=== PATIENT | female | born 1945 | race Caucasian/White ===

== ENCOUNTER 2020-08-30 09:53 | Inpatient (IN) ==
[2020-08-30 10:32] LABS: Basophils % 0.3 %; Eosinophils # 0.1 K/mcL (0.0-0.6); Eosinophils % 0.8 %; Hematocrit 38.5 % (35.3-44.9); Hemoglobin 12.1 g/dL (11.5-15.4); Immature Granulocytes % 0.3 % (0-4); Lymphocytes # 0.9 K/mcL (0.6-4.6); Lymphocytes % 11.8 %; Mean Corpuscular HGB Conc 31.4 g/dL (31.6-35.5); Mean Corpuscular Hemoglobin 28.4 pg (28.0-33.3); Mean Corpuscular Volume 90.4 fL (83.0-100.0); Mean Platelet Volume 10.6 fL (9.4-12.4); Monocytes # 0.8 K/mcL (0.0-1.3); Monocytes % 10.5 %; Neutrophils # 5.8 K/mcL (1.6-8.9); Platelet Count 278 K/mcL (140-400); Red Blood Count 4.26 M/mcL (3.82-4.97); Red Cell Distribution Width 16.6 % (11.5-14.5); Segmented Neutrophils % 76.3 %; White Blood Count 7.6 K/mcL (4.3-11.1)
[2020-08-30 10:42] LABS: INR 1.6; Prothrombin Time 17.7 Seconds (9.4-12.1)
[2020-08-30 10:45] LABS: Activated Partial Thrombo Time 34.7 Seconds (26.0-36.0)
[2020-08-30 10:53] LABS: BUN/Creatinine Ratio 20 (6-26); Blood Urea Nitrogen 20 mg/dL (8-23); Calcium 9.1 mg/dL (8.6-10.3); Carbon Dioxide 24 mEq/L (23-29); Chloride 109 mEq/L (98-107); Glucose 108 mg/dL (70-105); Magnesium 1.7 mg/dL (1.6-2.6); Osmolality,Calculated 295 (280-300); Potassium 4.2 mEq/L (3.5-5.1); Sodium 141 mEq/L (136-145); Troponin I < 0.03 ng/mL (< 0.04); eGFR For African Americans > 60 (> 60); eGFR For Non-African Americans 53 (> 60)
[2020-08-30] MEDS: DilTIAZem 50 MG/50 ML IV.SOLN IVC SCH ×2 (10:56→20:57)
[2020-08-30 11:07] LABS: Thyroid Stimulating Hormone 2.548 mcIU/mL (0.340-5.600)
[2020-08-30] MEDS ORDERED: DilTIAZem CD (24hr) 120 MG CAP.ER.24H PO SCH (11:15)
[2020-08-30] MEDS ORDERED: Ondansetron 4 MG/2 ML VIAL IVP PRN (12:15)
[2020-08-30] MEDS ORDERED: Acetaminophen 325 MG TABLET PO PRN (12:15)
[2020-08-30] MEDS ORDERED: DilTIAZem CD (24hr) 120 MG CAP.ER.24H PO ONE (16:15)
[2020-08-30] MEDS: Apixaban 5 MG TABLET PO SCH ×2 (16:16→20:26)
[2020-08-30] MEDS: DilTIAZem CD (24hr) 120 MG CAP.ER.24H PO SCH (20:26)
[2020-08-31 04:54] LABS: Hematocrit 34.5 % (35.3-44.9); Hemoglobin 10.8 g/dL (11.5-15.4); Mean Corpuscular HGB Conc 31.3 g/dL (31.6-35.5); Mean Corpuscular Hemoglobin 27.8 pg (28.0-33.3); Mean Corpuscular Volume 88.9 fL (83.0-100.0); Mean Platelet Volume 10.5 fL (9.4-12.4); Platelet Count 245 K/mcL (140-400); Red Blood Count 3.88 M/mcL (3.82-4.97); Red Cell Distribution Width 16.4 % (11.5-14.5); White Blood Count 5.1 K/mcL (4.3-11.1)
[2020-08-31 05:17] LABS: BUN/Creatinine Ratio 17 (6-26); Blood Urea Nitrogen 16 mg/dL (8-23); Calcium 8.5 mg/dL (8.6-10.3); Carbon Dioxide 23 mEq/L (23-29); Chloride 108 mEq/L (98-107); Glucose 94 mg/dL (70-105); Magnesium 1.9 mg/dL (1.6-2.6); Osmolality,Calculated 287 (280-300); Potassium 3.8 mEq/L (3.5-5.1); Sodium 138 mEq/L (136-145); eGFR For African Americans > 60 (> 60); eGFR For Non-African Americans 57 (> 60)
[2020-08-31] MEDS: Apixaban 5 MG TABLET PO SCH ×2 (08:51→21:42)
[2020-08-31] MEDS: DilTIAZem CD (24hr) 120 MG CAP.ER.24H PO SCH (08:51)
[2020-08-31] MEDS: Furosemide 20 MG TABLET PO SCH (08:52)
[2020-08-31] MEDS ORDERED: lisinopriL 20 MG TABLET PO SCH (09:00)
[2020-09-01 01:50] LABS: Basophils % 0.2 %; Eosinophils # 0.1 K/mcL (0.0-0.6); Eosinophils % 1.1 %; Hematocrit 34.9 % (35.3-44.9); Hemoglobin 11.4 g/dL (11.5-15.4); Immature Granulocytes % 0.2 % (0-4); Lymphocytes # 1.6 K/mcL (0.6-4.6); Lymphocytes % 29.7 %; Mean Corpuscular HGB Conc 32.7 g/dL (31.6-35.5); Mean Corpuscular Hemoglobin 28.4 pg (28.0-33.3); Mean Corpuscular Volume 86.8 fL (83.0-100.0); Mean Platelet Volume 10.6 fL (9.4-12.4); Monocytes # 0.7 K/mcL (0.0-1.3); Monocytes % 13.2 %; Platelet Count 250 K/mcL (140-400); Red Blood Count 4.02 M/mcL (3.82-4.97); Red Cell Distribution Width 16.7 % (11.5-14.5); Segmented Neutrophils % 55.6 %; White Blood Count 5.4 K/mcL (4.3-11.1)
[2020-09-01 02:09] LABS: % Iron Saturation 11 % (15-50); Iron 34 mcg/dL (50-170); Transferrin 217 mg/dL (203-362)
[2020-09-01 02:26] LABS: Ferritin 21 ng/mL (10-120)
[2020-09-01 02:31] LABS: Folate 12.2 ng/mL (3.0-16.0)
[2020-09-01] MEDS: Apixaban 5 MG TABLET PO SCH ×2 (07:17→21:13)
[2020-09-01] MEDS ORDERED: lisinopriL 10 MG TABLET PO SCH (09:00)
[2020-09-01] MEDS: DilTIAZem CD (24hr) 120 MG CAP.ER.24H PO SCH (11:14)
[2020-09-01] MEDS: allopurinoL 300 MG TABLET PO SCH (11:14)
[2020-09-02 05:58] LABS: Hematocrit 38.2 % (35.3-44.9); Hemoglobin 12.1 g/dL (11.5-15.4); Mean Corpuscular HGB Conc 31.7 g/dL (31.6-35.5); Mean Corpuscular Hemoglobin 28.8 pg (28.0-33.3); Mean Platelet Volume 10.6 fL (9.4-12.4); Platelet Count 243 K/mcL (140-400); Red Cell Distribution Width 16.6 % (11.5-14.5); White Blood Count 4.2 K/mcL (4.3-11.1)
[2020-09-02 06:18] LABS: BUN/Creatinine Ratio 19 (6-26); Blood Urea Nitrogen 19 mg/dL (8-23); Carbon Dioxide 24 mEq/L (23-29); Chloride 108 mEq/L (98-107); Glucose 106 mg/dL (70-105); Osmolality,Calculated 295 (280-300); Potassium 4.1 mEq/L (3.5-5.1); Sodium 141 mEq/L (136-145); eGFR For African Americans > 60 (> 60); eGFR For Non-African Americans 55 (> 60)
[2020-09-02] MEDS: DilTIAZem CD (24hr) 120 MG CAP.ER.24H PO SCH (07:45)
[2020-09-02] MEDS: allopurinoL 300 MG TABLET PO SCH (07:46)
[2020-09-02] MEDS: Furosemide 20 MG TABLET PO SCH (07:46)
[2020-09-02] MEDS: Apixaban 5 MG TABLET PO SCH ×2 (07:46→21:06)
[2020-09-02] MEDS: DilTIAZem CD (24hr) 180 MG CAP.ER.24H PO SCH (09:18)
[2020-09-02] MEDS ORDERED: *HR* FentaNYL (PF) 100 MCG/2 ML VIAL IVP PRN (11:26)
[2020-09-02] MEDS ORDERED: 0.9 % Sodium Chloride 500 ML IVC ONE (11:27)
[2020-09-02] MEDS: *HR* Midazolam HCl 5 MG/5 ML VIAL IVP PRN ×2 (11:45→11:48)
[2020-09-02] MEDS: Nystatin POWDER 30 GM BOTTLE TP SCH (23:22)
[2020-09-03 03:09] LABS: Basophils % 0.2 %; Eosinophils # 0.1 K/mcL (0.0-0.6); Eosinophils % 1.9 %; Hematocrit 38.7 % (35.3-44.9); Immature Granulocytes % 0.2 % (0-4); Lymphocytes # 1.7 K/mcL (0.6-4.6); Lymphocytes % 26.8 %; Mean Corpuscular Hemoglobin 27.6 pg (28.0-33.3); Mean Platelet Volume 10.8 fL (9.4-12.4); Monocytes # 0.7 K/mcL (0.0-1.3); Monocytes % 11.4 %; Neutrophils # 3.8 K/mcL (1.6-8.9); Platelet Count 259 K/mcL (140-400); Red Blood Count 4.35 M/mcL (3.82-4.97); Red Cell Distribution Width 16.5 % (11.5-14.5); Segmented Neutrophils % 59.5 %; White Blood Count 6.3 K/mcL (4.3-11.1)
[2020-09-03 03:17] LABS: BUN/Creatinine Ratio 19 (6-26); Blood Urea Nitrogen 20 mg/dL (8-23); Calcium 8.6 mg/dL (8.6-10.3); Carbon Dioxide 28 mEq/L (23-29); Chloride 106 mEq/L (98-107); Glucose 112 mg/dL (70-105); Osmolality,Calculated 291 (280-300); Potassium 3.7 mEq/L (3.5-5.1); Sodium 139 mEq/L (136-145); eGFR For African Americans > 60 (> 60); eGFR For Non-African Americans 51 (> 60)
[2020-09-03] MEDS: Apixaban 5 MG TABLET PO SCH ×2 (08:29→20:09)
[2020-09-03] MEDS: DilTIAZem CD (24hr) 180 MG CAP.ER.24H PO SCH (08:29)
[2020-09-03] MEDS: Nystatin POWDER 30 GM BOTTLE TP SCH ×2 (08:30→20:10)
[2020-09-03] MEDS: allopurinoL 300 MG TABLET PO SCH (08:30)
[2020-09-04 05:05] LABS: Basophils % 0.2 %; Eosinophils # 0.1 K/mcL (0.0-0.6); Eosinophils % 1.2 %; Hemoglobin 11.9 g/dL (11.5-15.4); Immature Granulocytes % 0.2 % (0-4); Lymphocytes # 1.5 K/mcL (0.6-4.6); Lymphocytes % 22.8 %; Mean Corpuscular HGB Conc 31.3 g/dL (31.6-35.5); Mean Corpuscular Hemoglobin 27.9 pg (28.0-33.3); Mean Platelet Volume 11.4 fL (9.4-12.4); Monocytes # 0.7 K/mcL (0.0-1.3); Monocytes % 10.7 %; Neutrophils # 4.3 K/mcL (1.6-8.9); Platelet Count 256 K/mcL (140-400); Red Blood Count 4.27 M/mcL (3.82-4.97); Red Cell Distribution Width 16.4 % (11.5-14.5); Segmented Neutrophils % 64.9 %; White Blood Count 6.6 K/mcL (4.3-11.1)
[2020-09-04 05:21] LABS: BUN/Creatinine Ratio 21 (6-26); Blood Urea Nitrogen 20 mg/dL (8-23); Calcium 8.6 mg/dL (8.6-10.3); Carbon Dioxide 27 mEq/L (23-29); Chloride 105 mEq/L (98-107); Glucose 106 mg/dL (70-105); Osmolality,Calculated 291 (280-300); Potassium 3.7 mEq/L (3.5-5.1); Sodium 139 mEq/L (136-145); eGFR For African Americans > 60 (> 60); eGFR For Non-African Americans 57 (> 60)
[2020-09-04] MEDS: DilTIAZem CD (24hr) 180 MG CAP.ER.24H PO SCH (08:24)
[2020-09-04] MEDS: Apixaban 5 MG TABLET PO SCH ×2 (08:24→21:54)
[2020-09-04] MEDS: allopurinoL 300 MG TABLET PO SCH (08:24)
[2020-09-04] MEDS: Furosemide 20 MG TABLET PO SCH (08:24)
[2020-09-04] MEDS: Nystatin POWDER 30 GM BOTTLE TP SCH ×2 (08:26→21:54)
[2020-09-05 04:00] LABS: Basophils % 0.1 %; Eosinophils % 0.4 %; Hematocrit 39.3 % (35.3-44.9); Hemoglobin 12.5 g/dL (11.5-15.4); Immature Granulocytes % 0.1 % (0-4); Lymphocytes # 1.4 K/mcL (0.6-4.6); Lymphocytes % 17.6 %; Mean Corpuscular HGB Conc 31.8 g/dL (31.6-35.5); Mean Corpuscular Hemoglobin 28.5 pg (28.0-33.3); Mean Corpuscular Volume 89.5 fL (83.0-100.0); Mean Platelet Volume 11.1 fL (9.4-12.4); Monocytes # 0.8 K/mcL (0.0-1.3); Monocytes % 10.1 %; Neutrophils # 5.6 K/mcL (1.6-8.9); Platelet Count 248 K/mcL (140-400); Red Blood Count 4.39 M/mcL (3.82-4.97); Red Cell Distribution Width 15.9 % (11.5-14.5); Segmented Neutrophils % 71.7 %; White Blood Count 7.8 K/mcL (4.3-11.1)
[2020-09-05 04:18] LABS: BUN/Creatinine Ratio 18 (6-26); Blood Urea Nitrogen 18 mg/dL (8-23); Calcium 8.4 mg/dL (8.6-10.3); Carbon Dioxide 27 mEq/L (23-29); Chloride 103 mEq/L (98-107); Glucose 117 mg/dL (70-105); Osmolality,Calculated 289 (280-300); Potassium 3.9 mEq/L (3.5-5.1); Sodium 138 mEq/L (136-145); eGFR For African Americans > 60 (> 60); eGFR For Non-African Americans 55 (> 60)
[2020-09-05] MEDS: allopurinoL 300 MG TABLET PO SCH (07:56)
[2020-09-05] MEDS: DilTIAZem CD (24hr) 180 MG CAP.ER.24H PO SCH (07:56)
[2020-09-05] MEDS: Apixaban 5 MG TABLET PO SCH ×2 (07:56→20:30)
[2020-09-05] MEDS: Nystatin POWDER 30 GM BOTTLE TP SCH ×2 (07:57→20:30)
[2020-09-06 02:04] LABS: White Blood Count 8.4 K/mcL (4.3-11.1)
[2020-09-06 02:05] LABS: Basophils % 0.1 %; Eosinophils % 0.1 %; Hematocrit 40.9 % (35.3-44.9); Hemoglobin 13.1 g/dL (11.5-15.4); Immature Granulocytes % 0.4 % (0-4); Lymphocytes # 1.6 K/mcL (0.6-4.6); Lymphocytes % 18.9 %; Mean Corpuscular Hemoglobin 28.6 pg (28.0-33.3); Mean Corpuscular Volume 89.3 fL (83.0-100.0); Mean Platelet Volume 11.1 fL (9.4-12.4); Monocytes # 0.9 K/mcL (0.0-1.3); Monocytes % 10.5 %; Neutrophils # 5.9 K/mcL (1.6-8.9); Platelet Count 238 K/mcL (140-400); Red Blood Count 4.58 M/mcL (3.82-4.97)
[2020-09-06 02:26] LABS: BUN/Creatinine Ratio 23 (6-26); Blood Urea Nitrogen 21 mg/dL (8-23); Calcium 8.7 mg/dL (8.6-10.3); Carbon Dioxide 24 mEq/L (23-29); Chloride 103 mEq/L (98-107); Glucose 108 mg/dL (70-105); Osmolality,Calculated 290 (280-300); Potassium 3.7 mEq/L (3.5-5.1); Sodium 138 mEq/L (136-145); eGFR For African Americans > 60 (> 60); eGFR For Non-African Americans 60 (> 60)
[2020-09-06] MEDS: DilTIAZem CD (24hr) 240 MG CAP.ER.24H PO SCH (08:14)
[2020-09-06] MEDS: allopurinoL 300 MG TABLET PO SCH (08:14)
[2020-09-06] MEDS: Furosemide 20 MG TABLET PO SCH (08:14)
[2020-09-06] MEDS: Apixaban 5 MG TABLET PO SCH ×2 (08:14→20:25)
[2020-09-06] MEDS: Nystatin POWDER 30 GM BOTTLE TP SCH ×2 (08:14→20:25)
[2020-09-07 03:22] LABS: Calcium 8.5 mg/dL (8.6-10.3); Magnesium 1.8 mg/dL (1.6-2.6)
[2020-09-07] MEDS: allopurinoL 300 MG TABLET PO SCH (07:12)
[2020-09-07] MEDS: DilTIAZem CD (24hr) 240 MG CAP.ER.24H PO SCH (07:12)
[2020-09-07] MEDS: Nystatin POWDER 30 GM BOTTLE TP SCH ×2 (07:13→20:05)
[2020-09-07] MEDS: Apixaban 5 MG TABLET PO SCH ×2 (07:13→19:47)
[2020-09-07 11:57] LABS: Basophils % 0.1 %; Eosinophils % 0.1 %; Hematocrit 38.8 % (35.3-44.9); Hemoglobin 11.7 g/dL (11.5-15.4); Immature Granulocytes % 0.4 % (0-4); Lymphocytes # 1.7 K/mcL (0.6-4.6); Lymphocytes % 17.9 %; Mean Corpuscular HGB Conc 30.2 g/dL (31.6-35.5); Mean Corpuscular Hemoglobin 27.3 pg (28.0-33.3); Mean Corpuscular Volume 90.7 fL (83.0-100.0); Mean Platelet Volume 11.7 fL (9.4-12.4); Monocytes # 1.1 K/mcL (0.0-1.3); Monocytes % 11.5 %; Neutrophils # 6.7 K/mcL (1.6-8.9); Platelet Count 253 K/mcL (140-400); Red Blood Count 4.28 M/mcL (3.82-4.97); Red Cell Distribution Width 15.9 % (11.5-14.5); White Blood Count 9.5 K/mcL (4.3-11.1)
[2020-09-07] MEDS ORDERED: Doxycycline 100 MG in 0.9 % Sodium Chloride Mini Bag 100 ML IVPB SCH ×2 (13:00→13:01)
[2020-09-07 13:24] LABS: Adenovirus Not Detected (Not Detect); Coronavirus 229E Not Detected (Not Detect); Coronavirus HKU1 Not Detected (Not Detect); Coronavirus NL63 Not Detected (Not Detect); Coronavirus OC43 Not Detected (Not Detect)
[2020-09-07 13:29] LABS: Bordetella Pertussis Not Detected (Not Detect); Chlamydophila pneumoniae Not Detected (Not Detect); Human Metapneumovirus Not Detected (Not Detect); Human Rhinovirus/Enterovirus Not Detected (Not Detect); Influenza A Subtype 2009 H1 Not Detected (Not Detect); Influenza B Not Detected (Not Detect); Mycoplasma pneumoniae Not Detected (Not Detect); Parainfluenza Virus 1 Not Detected (Not Detect); Parainfluenza Virus 2 Not Detected (Not Detect); Parainfluenza Virus 3 Not Detected (Not Detect); Parainfluenza Virus 4 Not Detected (Not Detect); Respiratory Syncytial Virus Not Detected (Not Detect); SARS-CoV-2 DETECTED (Not Detect)
[2020-09-07] MEDS: Dexamethasone 4 MG/ML VIAL IVP SCH (18:32)
[2020-09-07] MEDS: Furosemide 40 MG/4 ML VIAL IVP SCH (18:32)
[2020-09-08] MEDS: Apixaban 5 MG TABLET PO SCH ×2 (09:08→20:28)
[2020-09-08] MEDS: allopurinoL 300 MG TABLET PO SCH (09:08)
[2020-09-08] MEDS: DilTIAZem CD (24hr) 240 MG CAP.ER.24H PO SCH (09:08)
[2020-09-08] MEDS: Nystatin POWDER 30 GM BOTTLE TP SCH ×2 (09:09→20:28)
[2020-09-08] MEDS: Dexamethasone 4 MG/ML VIAL IVP SCH (09:09)
[2020-09-08] MEDS: Furosemide 40 MG/4 ML VIAL IVP SCH (09:41)
[2020-09-08 10:19] LABS: Prothrombin Time 22.6 Seconds (9.4-12.1)
[2020-09-08 10:20] LABS: Hematocrit 40.6 % (35.3-44.9); Hemoglobin 12.9 g/dL (11.5-15.4); Mean Corpuscular HGB Conc 31.8 g/dL (31.6-35.5); Mean Corpuscular Hemoglobin 28.1 pg (28.0-33.3); Mean Corpuscular Volume 88.5 fL (83.0-100.0); Mean Platelet Volume 11.3 fL (9.4-12.4); Platelet Count 295 K/mcL (140-400); Red Blood Count 4.59 M/mcL (3.82-4.97); Red Cell Distribution Width 15.3 % (11.5-14.5)
[2020-09-08 10:22] LABS: White Blood Count 4.6 K/mcL (4.3-11.1)
[2020-09-08 10:39] LABS: Albumin 3.5 g/dL (3.5-5.7); Bilirubin,Indirect 0.3 mg/dL (0.0-1.0); Bilirubin,Total 0.3 mg/dL (0.3-1.0); Calcium 8.9 mg/dL (8.6-10.3); Globulin 3.4 g/dL (2.4-3.5); Potassium 4.3 mEq/L (3.5-5.1); Total Protein 6.9 g/dL (6.4-8.9)
[2020-09-08] MEDS ORDERED: 0.9 % Sodium Chloride 500 ML ONE (17:49)
[2020-09-08] MEDS: Gabapentin 400 MG CAPSULE PO SCH (20:28)
[2020-09-09] MEDS: Furosemide 40 MG/4 ML VIAL IVP SCH (08:59)
[2020-09-09] MEDS: Dexamethasone 4 MG/ML VIAL IVP SCH (09:00)
[2020-09-09] MEDS: Apixaban 5 MG TABLET PO SCH (09:00)
[2020-09-09] MEDS: Gabapentin 400 MG CAPSULE PO SCH (09:00)
[2020-09-09] MEDS: DilTIAZem CD (24hr) 240 MG CAP.ER.24H PO SCH (09:01)
[2020-09-09] MEDS: Nystatin POWDER 30 GM BOTTLE TP SCH (09:01)
[2020-09-09] MEDS: allopurinoL 300 MG TABLET PO SCH (09:01)
[2020-09-09 11:30] LABS: BUN/Creatinine Ratio 46 (6-26); Blood Urea Nitrogen 46 mg/dL (8-23); Calcium 9.5 mg/dL (8.6-10.3); Carbon Dioxide 21 mEq/L (23-29); Chloride 102 mEq/L (98-107); Glucose 179 mg/dL (70-105); Osmolality,Calculated 296 (280-300); Potassium 4.5 mEq/L (3.5-5.1); Sodium 135 mEq/L (136-145); eGFR For African Americans > 60 (> 60); eGFR For Non-African Americans 55 (> 60)
[2020-09-09 13:41] VITALS: BP 168/69
== END 2020-09-09 15:48 | disposition home health service (06) | DRG 308 ==
LOC: EMEROOARM 09:53 → 3BNU 09:53 → SUATTDRO 15:02 → 2ANU 08-31 17:19 → 2NENU 09-07 16:06
PROVIDERS: ADMIT Internal Medicine; ATTEND Internal Medicine

== ENCOUNTER 2020-11-07 10:43 | Inpatient (IN) ==
[2020-11-07] MEDS ORDERED: Ondansetron 4 MG/2 ML VIAL IVP PRN (12:21)
[2020-11-07] MEDS ORDERED: Naloxone 0.4 MG/ML INJ IVP PRN (12:21)
[2020-11-07] MEDS: DilTIAZem 50 MG/50 ML IV.SOLN IVC SCH ×2 (13:50→21:08)
[2020-11-07] MEDS: Nystatin Cream 15 GM TUBE TP SCH ×2 (13:51→19:48)
[2020-11-08 01:55] LABS: Basophils % 0.1 %; Eosinophils # 0.2 K/mcL (0.0-0.6); Eosinophils % 3.1 %; Hematocrit 33.3 % (35.3-44.9); Hemoglobin 10.2 g/dL (11.5-15.4); Immature Granulocytes % 0.1 % (0-4); Lymphocytes # 1.8 K/mcL (0.6-4.6); Lymphocytes % 26.1 %; Mean Corpuscular HGB Conc 30.6 g/dL (31.6-35.5); Mean Corpuscular Hemoglobin 27.3 pg (28.0-33.3); Mean Platelet Volume 10.6 fL (9.4-12.4); Monocytes # 0.6 K/mcL (0.0-1.3); Monocytes % 9.3 %; Neutrophils # 4.1 K/mcL (1.6-8.9); Platelet Count 279 K/mcL (140-400); Red Blood Count 3.74 M/mcL (3.82-4.97); Red Cell Distribution Width 16.2 % (11.5-14.5); Segmented Neutrophils % 61.3 %; White Blood Count 6.7 K/mcL (4.3-11.1)
[2020-11-08 02:15] LABS: BUN/Creatinine Ratio 22 (6-26); Blood Urea Nitrogen 17 mg/dL (8-23); Calcium 8.6 mg/dL (8.6-10.3); Carbon Dioxide 25 mEq/L (23-29); Chloride 111 mEq/L (98-107); Glucose 96 mg/dL (70-105); Osmolality,Calculated 299 (280-300); Potassium 3.5 mEq/L (3.5-5.1); Sodium 144 mEq/L (136-145); eGFR For African Americans > 60 (> 60); eGFR For Non-African Americans > 60 (> 60)
[2020-11-08] MEDS: DilTIAZem 50 MG/50 ML IV.SOLN IVC SCH ×3 (03:08→12:23)
[2020-11-08] MEDS: DilTIAZem CD (24hr) 240 MG CAP.ER.24H PO SCH (09:47)
[2020-11-08] MEDS: Nystatin Cream 15 GM TUBE TP SCH ×2 (09:47→20:04)
[2020-11-08] MEDS ORDERED: Furosemide 20 MG/2 ML VIAL IVP SCH (12:42)
[2020-11-08 14:06] LABS: Magnesium 1.8 mg/dL (1.6-2.6); Phosphorous 3.1 mg/dL (2.7-4.5)
[2020-11-08] MEDS ORDERED: (Diclofenac Sodium [Voltaren] 2 GM) TP PRN (16:36)
[2020-11-08] MEDS ORDERED: *HR* Heparin 5,000 UNIT/ML VIAL SQ SCH (18:00)
[2020-11-08] MEDS: Furosemide 20 MG/2 ML VIAL IVP SCH (19:58)
[2020-11-08] MEDS: Apixaban 5 MG TABLET PO SCH (19:59)
[2020-11-09] MEDS: DilTIAZem 50 MG/50 ML IV.SOLN IVC SCH (03:55)
[2020-11-09 05:01] LABS: BUN/Creatinine Ratio 18 (6-26); Blood Urea Nitrogen 14 mg/dL (8-23); Calcium 9.1 mg/dL (8.6-10.3); Carbon Dioxide 27 mEq/L (23-29); Chloride 108 mEq/L (98-107); Glucose 110 mg/dL (70-105); Magnesium 1.9 mg/dL (1.6-2.6); Osmolality,Calculated 297 (280-300); Phosphorous 2.9 mg/dL (2.7-4.5); Potassium 3.3 mEq/L (3.5-5.1); Sodium 143 mEq/L (136-145); eGFR For African Americans > 60 (> 60); eGFR For Non-African Americans > 60 (> 60)
[2020-11-09] MEDS: Nystatin Cream 15 GM TUBE TP SCH (07:37)
[2020-11-09] MEDS: Furosemide 20 MG/2 ML VIAL IVP SCH (07:37)
[2020-11-09] MEDS: Apixaban 5 MG TABLET PO SCH (07:37)
[2020-11-09] MEDS: DilTIAZem CD (24hr) 240 MG CAP.ER.24H PO SCH (07:37)
[2020-11-09] MEDS ORDERED: MECOBALAMIN 1000 MCG PO SCH (09:00)
[2020-11-09 12:13] VITALS: BP 109/79
== END 2020-11-09 13:22 | disposition home health service (06) | DRG 309 ==
LOC: 2ANU → SUATTDRO 12:15
PROVIDERS: ADMIT Internal Medicine; ATTEND Pharmacist